=== PATIENT | female | born 1940 | race Caucasian/White ===

== ENCOUNTER → 2016-04-12 | Outpatient (CLI) | payer MEDICARE, BC, OTHER ==
[~2016-04-12] MED LIST: ALPRAZOLAM PO; ANTI-DIARRHEAL2 M1; ANTI-DIARRHEAL2 M1 PO; ARTHRITIS PAI42.5 GM PO; CALCIUM 500 +1 EAC2 PO; CALCIUM500 MG PO; CIPRO PO; CITALOPRAM HBR10 MG PO; CITALOPRAM HBR40 MG PO; CLOPIDOGREL75 MG PO; DARVOCET-N 1001 TAB; DERMACORT1 GM EXT; DETROL PO; DIOVAN HCT 160/1 TAB; DONEPEZIL HCL10 MG PO; EFFEXOR XR; ESTROVEN; EVENING PRIMRO1 EACH PO; EVENING PRIMROSE OIL; FLAGYL PO; FLORANEX; GABAPENTIN400 M2 PO; GABAPENTIN400 MG PO; KLONOPIN0.5 M3 PO; LOMOTIL WHITE2.5 M1; LOMOTIL WHITE2.5 M1 PO; LORTAB 5/500 TA1 TA1 PO; LOTREL 10-40 M1 EACH PO; MEDROL; MEGA D PO; METRONIDAZOLE PO; MICRO-K10 ME2 PO; MOBIC; MULTI VITAMIN1 EACH PO; NAMENDA XR28 MG PO; NAPROSYN-EC500 M1 PO; NASONEX17 GM; OMEPRAZOLE DR PO; OMEPRAZOLE20 M2 PO; PHENERGAN25 MG PO; PRADAXA150 MG PO; PRAVACHOL PO; PRAVACHOL20 MG PO; PRAVASTATIN SOD20 MG PO; PRILOSEC20 M1 PO; PRIMROSE OIL PO; PRINIVIL5 MG PO; PROTONIX; REFRESH5 ML OP; SKELAXIN; SKELAXIN PO; SULFAMETHOXAZO1 EACH PO; TRAMADOL HCL50 M2 PO; TYLENOL SINUS; ULTRACET TABLET1 TAB; VENLAFAXINE HC150 MG PO; VICODIN; VITAMIN B-6; VOLTAREN75 MG PO; XANAX0.5 M1 PO; ZYRTEC10 M1 PO; ZYRTEC10 M2 PO; [UNRECOGNIZED DRUG - OTHER]; [UNRECOGNIZED DRUG - OTHER]; [UNRECOGNIZED DRUG - OTHER] PO; [UNRECOGNIZED DRUG - OTHER] PO; [UNRECOGNIZED DRUG - OTHER] PO; [UNRECOGNIZED DRUG - OTHER] PO
--- NOTE | ~2016-04-12 | CT98 ---
[facility] A Service of [facility] & [facility] RADIOLOGY TEXT RESULTS PATIENT: PINEDA OLVERA LOCATION: [facility] : 38 UNIT #: [id number] AGE: [address]: Serg Cunha MD SEX: F ORDER DR: [id number] [facility] [address] [place], [place] [address] [id number] O MR#: [id number] Acc #: [id number] NAME: PINEDA OLVERA. : 1940 SEX: F STUDY DATE/TIME: 04/12/2016 17:28 UNIT: [facility] ROOM: STUDY DESCRIPTION: CT Lumbar Spine Wo Cont Attending Physician: Serg Cunha M.D. Referring Physician: Serg Cunha M.D. Ordering Physician: Serg Cunha M.D. Primary Care Physician: Aníbal Benz M.D. MEDICAL IMAGING REPORT This report is preliminary unless electronic signature is present EXAM Lumbar spine CT, no contrast HISTORY Back pain for several months, at least 2 months, shooting pain radiating down both legs. COMPARISON Prior CT lumbar spine 06/10/[address] lumbar spine with multiplanar reformats. This CT exam was performed with one or more of the following radiation dose reduction techniques: Automatic exposure control, adjustment of mA and/or kV according to patient size, and iterative reconstruction. FINDINGS There has been fusion at 4-5 and there is a 4-5 grade I anterolisthesis as well as a disc prosthetic and bilateral pedicle screws. In addition, there has been thoracolumbar fusion from T10 through L2 with T12 corpectomy and strut grafting, as well as bilateral pedicle screws at 10, 11, 1 and 2. Overall, surgical interventions are unchanged since the prior study. There is no evidence of any pedicle screw loosening or other device failure. There is probably partial osseous union across the 4-5 disc and perhaps partial osseous union at the ends of the T12 strut graft, but again without change in position or evidence of loosening or failure. The paraspinous tissues are unremarkable. Canal and foraminal narrowing is fairly difficult to assess across most of the fused segments but there is probably some element of canal stenosis at 3-4 probably mild or mild to moderate, also unchanged, and there is likely some element of bilateral noknm-tddgbst-ikuk-left foraminal narrowing at 3-4 as well, also probably unchanged. [facility] A Service of [facility] & [facility] RADIOLOGY TEXT RESULTS PATIENT: PINEDA OLVERA LOCATION: [facility] : 38 UNIT #: [id number] AGE: [address]: Serg Cunha MD SEX: F ORDER DR: [place] Stable alignment and post fusion change, no definite acute abnormality, no evidence of device loosening or failure, new fracture or bone erosion or destruction. Dictated by... Rigo Nicole M.D. THIS IS AN ELECTRONICALLY VERIFIED REPORT Rigo Nicole M.D. at 04/17/2016 11:48 AM TEV/psc TD: 04/17/2016 04:05 JOB #: [id number] MEDICAL IMAGING REPORT COPY
== END | disposition home or self-care (01) ==
LOC: CCAT 17:07
DX: M54.5 Low back pain (principal)
CPT/HCPCS: 72131

== ENCOUNTER 2016-09-28 09:00 | Emergency (ER) | payer MEDICARE, BC, OTHER ==
[~2016-09-28] VITALS: Ht 144.8 cm; Wt 64.9 kg
--- NOTE | ~2016-09-28 | CT4 ---
[facility] A Service of [facility] & [facility] RADIOLOGY TEXT RESULTS PATIENT: PINEDA OLVERA LOCATION: [facility] : 39 UNIT #: [id number] AGE: [address]: Priscilla Jay MD SEX: F ORDER DR: [id number] [facility] [address] [place], [place] [address] [id number] E MR#: [id number] Acc #: [id number] NAME: PINEDA OLVERA. : 1940 SEX: F STUDY DATE/TIME: 09/28/2016 11:46 UNIT: [facility] ROOM: STUDY DESCRIPTION: CT Abd and Pelv Wo Cont Attending Physician: Priscilla Jay M.D. Ordering Physician: Priscilla Jay M.D. Primary Care Physician: Aníbal Benz M.D. MEDICAL IMAGING REPORT This report is preliminary unless electronic signature is present EXAM CT abdomen and pelvis without IV contrast. COMPARISON 04/02/2013 INDICATION 78-year-old female with diffuse abdominal pain and diarrhea for [address] imaging of the abdomen and pelvis was performed without IV contrast. Coronal and sagittal reformats were reconstructed. Lack of IV contrast limits evaluation of adenopathy, vasculature, and viscera. This CT exam was performed with one or more of the following radiation dose reduction techniques: automatic exposure control, adjustment of mA and/or kV according to patient size, and iterative reconstruction. FINDINGS Tiny fat-containing umbilical hernia. There are new varices seen in the bilateral and midline lower anterior abdominal wall of uncertain etiology. There is a new midline surgical scar of the low back. There has been placement of a posterior spinal fusion hardware since July 31, 2013 and this spans from T10 through L5. There is no hardware at the level of L3. Disc space material is now seen L4-L5 and there is a corpectomy device associated with the T12 vertebral body which appears diffusely sclerotic. No evidence of posterior spinal fusion hardware complication. There is grade 1 anterolisthesis of L4 on L5. No acute fractures or suspicious osseous lesions. Calcifications at the level of the mitral valve. No acute findings in the lower chest. The unenhanced liver, gallbladder, and right adrenal gland are unremarkable. There is mild thickening of the left adrenal gland, grossly STS. [facility] A Service of [facility] RADIOLOGY TEXT RESULTS PATIENT: PINEDA OLVERA LOCATION: [facility] : 38 UNIT #: [id number] AGE: [address]: Priscilla Jay MD SEX: F ORDER DR: stable from July 2013, likely reflecting mild hyperplasia. Two splenules are also noted, stable from that time. The spleen is otherwise normal. There is atrophy of the pancreas. No evidence of acute pancreatitis or pancreatic mass lesion on this noncontrast exam. No definite renal abnormality is seen on this noncontrast CT. Evaluation of the kidneys is somewhat limited by streak artifact from metallic hardware. No hydronephrosis or hydroureter. No renal or ureteral calculi. Bilateral gonadal vein phleboliths. Prior hysterectomy. No adnexal masses. Urinary bladder is unremarkable. No evidence of bowel obstruction. Contrast reaches the splenic flexure of the colon. Multifocal smooth narrowing of the ascending colon is most consistent with peristalsis. No evidence of acute appendicitis. There is diffuse calcification of the abdominal aorta with involvement of the origins of the celiac, superior mesenteric, and bilateral renal arteries. Dense calcifications extend into the iliac arteries, as well. No free fluid or pneumoperitoneum. No adenopathy. IMPRESSION 1. No acute findings in the abdomen, pelvis or imaged lower chest. 2. Calcifications of the mitral valve. 3. Prior hysterectomy. Diffuse arterial calcifications in the abdomen and pelvis. 4. Interval changes of thoracolumbar posterior spinal fusion without evidence of hardware complication. Dictated by... Gustabo Conley M.D. THIS IS AN ELECTRONICALLY VERIFIED REPORT Gustabo Conley M.D. at 10/03/2016 11:42 AM DELORES/juaquin TD: 09/28/2016 15:21 JOB #: [id number] MEDICAL IMAGING REPORT Page 1 of 1 COPY
[~2016-09-28 09:00] MED LIST changes: -ANTI-DIARRHEAL2 M1; -CITALOPRAM HBR10 MG PO; -DERMACORT1 GM EXT; -FLAGYL PO; -FLORANEX; -KLONOPIN0.5 M3 PO; -LOMOTIL WHITE2.5 M1; -NAPROSYN-EC500 M1 PO; -PRADAXA150 MG PO; -PRAVACHOL20 MG PO; -PRINIVIL5 MG PO; -VENLAFAXINE HC150 MG PO; -XANAX0.5 M1 PO; -ZYRTEC10 M1 PO
[2016-09-28 10:16] LABS: URINE SOURCE CLEAN CATCH
[2016-09-28 10:21] LABS: BASOPHIL% 0.4 % (0-2.5); EOSINOPHIL# 0.2 X10e3 (0-0.7); EOSINOPHIL% 2.3 % (0.0-7.0); HEMATOCRIT 40.1 % (35.0-45.0); HEMOGLOBIN 13.9 gm/dL (12.0-16.0); LYMPHOCYTE# 1.6 X10e3 (1.0-3.5); LYMPHOCYTE% 23.5 % (17.0-45.0); MEAN CELL VOLUME 96.6 FL (83-96); MEAN CORPUSCULAR HEMOGLOBIN 33.4 PG (28-34); MEAN CORPUSCULAR HGB CONC 34.5 g/dL (30-36); MEAN PLATELET VOLUME 10.9 FL (6.5-11.5); MONOCYTE# 0.4 X10e3 (0-1.0); NEUTROPHIL# 4.6 X10e3 (1.5-7.1); NEUTROPHIL% 67.8 % (40-75); RED BLOOD COUNT 4.15 X10e (3.90-5.30); RED CELL DISTRIBUTION WIDTH 13.3 % (11.0-15.5); WHITE BLOOD COUNT 6.8 X10e3 (4.0-10.5)
[2016-09-28 10:22] LABS: URINE APPEARANCE CLEAR; URINE BILIRUBIN NEG (NEG); URINE BLOOD TRACE (NEG); URINE COLOR YELLOW; URINE GLUCOSE NEG (NEG); URINE KETONE NEG (NEG); URINE LEUKOCYTE ESTERASE NEG (NEG); URINE NITRATE NEG (NEG); URINE PH 6.5 (5-8); URINE PROTEIN NEG (NEG); URINE SPECIFIC GRAVITY 1.013 (1.003-1.035); URINE UROBILINOGEN 0.2 MG/DL (NEG)
[2016-09-28 10:23] LABS: URINE BACTERIA AUWI NEG (NEGATIVE); URINE SQUAMOUS EPITHELIAL CELL NONE SEEN /[HPF]; UWBCS1 AUWI 0-2 (0-5)
[2016-09-28 10:24] LABS: CULTURE INDICATED? NO
[2016-09-28 10:36] LABS: DIFF IND NO; PLATELET COUNT 128 X10e3 (140-420)
[2016-09-28 12:08] LABS: ALBUMIN SERUM 3.7 g/dL (3.5-5.0); ALKALINE PHOSPHATASE 77 U/L (32-92); ALT (SGPT) 16 U/L (10-40); AST (SGOT) 19 U/L (10-42); BILIRUBIN, DIRECT 0.1 mg/dL (0.0-0.2); BILIRUBIN,INDIRECT 0.5 mg/dL (0.0-0.9); BILIRUBIN,TOTAL 0.6 mg/dL (0.2-2.0); BLOOD UREA NITROGEN 13 mg/dL (9-23); BUN/CREATININE RATIO 18.57; CALCIUM SERUM 8.4 mg/dL (8.4-10.2); CARBON DIOXIDE 29 mmol/L (22-31); CHLORIDE 105 mmol/L (100-111); CREATININE SERUM 0.7 mg/dL (0.6-1.4); GLOM FILT RATE Estimated 83.6 mL/min (>60); GLUCOSE FASTING 94 mg/dL (70-110); LIPASE 16 U/L (22-51); POTASSIUM 3.4 mmol/L (3.5-5.1); PROTEIN TOTAL SERUM 6.3 g/dL (6.0-8.3); SODIUM 140 mmol/L (135-145)
[2016-09-28 12:15] LABS: AMYLASE <7 U/L (0-46)
[2016-10-07] MEDS ORDERED: CITALOPRAM HBR10 MG PO (16:34)
[2016-10-07] MEDS ORDERED: KLONOPIN0.5 M3 PO (16:34)
[2016-10-07] MEDS ORDERED: DONEPEZIL HCL10 MG PO (16:35)
[2016-10-07] MEDS ORDERED: GABAPENTIN400 M2 PO (16:35)
[2016-10-07] MEDS ORDERED: DERMACORT1 GM EXT (16:36)
[2016-10-07] MEDS ORDERED: LOMOTIL WHITE2.5 M1 (16:36)
[2016-10-07] MEDS ORDERED: ANTI-DIARRHEAL2 M1 (16:37)
[2016-10-07] MEDS ORDERED: NAMENDA XR28 MG PO (16:38)
[2016-10-07] MEDS ORDERED: FLAGYL PO (16:38)
[2016-10-07] MEDS ORDERED: OMEPRAZOLE20 M2 PO (16:39)
[2016-10-07] MEDS ORDERED: NAPROSYN-EC500 M1 PO (16:39)
[2016-10-07] MEDS ORDERED: CLOPIDOGREL75 MG PO (16:39)
[2016-10-07] MEDS ORDERED: TRAMADOL HCL50 M2 PO (16:40)
[2016-10-07] MEDS ORDERED: PRAVACHOL20 MG PO (16:40)
[2016-10-07] MEDS ORDERED: SKELAXIN PO (16:40)
[2016-10-07] MEDS ORDERED: VENLAFAXINE HC150 MG PO (16:43)
[2016-10-07] MEDS ORDERED: XANAX0.5 M1 PO (16:43)
[2016-10-07] MEDS ORDERED: ZYRTEC10 M1 PO (16:44)
[2016-10-07] MEDS ORDERED: PRINIVIL5 MG PO (17:08)
[2016-10-07] MEDS ORDERED: PRADAXA150 MG PO (17:08)
[2016-10-07] MEDS ORDERED: FLORANEX (17:08)
== END 2016-09-28 16:17 | disposition home or self-care (01) ==
LOC: CED 09:00
PROVIDERS: Emergency Medicine
DX: K52.9 Noninfective gastroenteritis and colitis, unspecified (principal); Z88.0 Allergy status to penicillin; Z88.5 Allergy status to narcotic agent; Z88.6 Allergy status to analgesic agent; Z91.040 Latex allergy status; Z91.041 Radiographic dye allergy status; Z88.8 Allergy status to other drugs, medicaments and biological substances
CPT/HCPCS: 36415; 74176; 80048; 80076; 81003; 82150; 83690; 85025; 96372; 96374; 96375; 99284; J0500; J2270; J2405

== ENCOUNTER 2016-10-18 21:03 | Emergency (ER) | payer MEDICARE, BC, OTHER ==
[~2016-10-18] VITALS: Ht 152.4 cm; Wt 64.9 kg
[~2016-10-18 21:03] MED LIST changes: +ANTI-DIARRHEAL2 M1; +CITALOPRAM HBR10 MG PO; +DERMACORT1 GM EXT; +FLAGYL PO; +FLORANEX; +KLONOPIN0.5 M3 PO; +LOMOTIL WHITE2.5 M1; +NAPROSYN-EC500 M1 PO; +PRADAXA150 MG PO; +PRAVACHOL20 MG PO; +PRINIVIL5 MG PO; +VENLAFAXINE HC150 MG PO; +XANAX0.5 M1 PO; +ZYRTEC10 M1 PO
[2016-10-18 22:36] LABS: BASOPHIL# 0.1 X10e3 (0-0.3); BASOPHIL% 0.8 % (0-2.5); EOSINOPHIL# 0.3 X10e3 (0-0.7); EOSINOPHIL% 3.1 % (0.0-7.0); HEMATOCRIT 41.6 % (35.0-45.0); HEMOGLOBIN 13.8 gm/dL (12.0-16.0); LYMPHOCYTE# 1.8 X10e3 (1.0-3.5); LYMPHOCYTE% 19.2 % (17.0-45.0); MEAN CORPUSCULAR HEMOGLOBIN 32.9 PG (28-34); MEAN CORPUSCULAR HGB CONC 33.2 g/dL (30-36); MEAN PLATELET VOLUME 11.2 FL (6.5-11.5); MONOCYTE# 0.7 X10e3 (0-1.0); MONOCYTE% 7.6 % (3.0-12.0); NEUTROPHIL# 6.4 X10e3 (1.5-7.1); NEUTROPHIL% 69.3 % (40-75); PLATELET COUNT 121 X10e3 (140-420); RED CELL DISTRIBUTION WIDTH 13.9 % (11.0-15.5); WHITE BLOOD COUNT 9.3 X10e3 (4.0-10.5)
[2016-10-18 22:38] LABS: DIFF IND NO
[2016-10-18 22:59] LABS: ALBUMIN SERUM 3.9 g/dL (3.5-5.0); BILIRUBIN, DIRECT 0.1 mg/dL (0.0-0.2); BILIRUBIN,INDIRECT 0.3 mg/dL (0.0-0.9); BILIRUBIN,TOTAL 0.4 mg/dL (0.2-2.0); BUN/CREATININE RATIO 21.25; CALCIUM SERUM 8.5 mg/dL (8.4-10.2); CREATININE SERUM 0.8 mg/dL (0.6-1.4); GLOM FILT RATE Estimated 71.2 mL/min (>60); POTASSIUM 3.7 mmol/L (3.5-5.1); PROTEIN TOTAL SERUM 6.9 g/dL (6.0-8.3)
[2016-10-19 00:24] LABS: URINE SOURCE CLEAN CATCH
[2016-10-19 00:28] LABS: URINE APPEARANCE CLEAR; URINE BILIRUBIN NEG (NEG); URINE BLOOD NEG (NEG); URINE COLOR DK YELLOW; URINE GLUCOSE NEG (NEG); URINE KETONE TRACE (NEG); URINE LEUKOCYTE ESTERASE TRACE (NEG); URINE NITRATE NEG (NEG); URINE PROTEIN TRACE (NEG); URINE UROBILINOGEN 0.2 MG/DL (NEG)
[2016-10-19 00:30] LABS: URINE BACTERIA AUWI NEG (NEGATIVE); URINE SQUAMOUS EPITHELIAL CELL NONE SEEN /[HPF]; UWBCS1 AUWI 0-2 (0-5)
[2016-10-19 00:31] LABS: CULTURE INDICATED? NO
== END 2016-10-19 00:50 | disposition home or self-care (01) ==
LOC: CED 21:03
PROVIDERS: Emergency Medicine
DX: R10.32 Left lower quadrant pain (principal); J45.909 Unspecified asthma, uncomplicated; Z90.710 Acquired absence of both cervix and uterus; F17.200 Nicotine dependence, unspecified, uncomplicated; Z79.899 Other long term (current) drug therapy; Z91.041 Radiographic dye allergy status; Z88.0 Allergy status to penicillin; Z88.5 Allergy status to narcotic agent; Z88.6 Allergy status to analgesic agent; Z88.1 Allergy status to other antibiotic agents; Z88.8 Allergy status to other drugs, medicaments and biological substances; Z91.040 Latex allergy status
CPT/HCPCS: 36415; 80048; 80076; 81003; 82150; 83690; 85025; 96361; 96374; 99284; J2270